=== PATIENT | male | born 1980 | race Caucasian/White ===

== ENCOUNTER 2016-03-17 06:55 | Emergency (ER) | payer SELFPAY ==
[~2016-03-17] VITALS: Ht 185.4 cm; Wt 83.0 kg
[~2016-03-17 06:55] MED LIST: METH5SOL3 PO; XANA0.5T PO; XANA1TAB6 PO
[2016-03-17 07:00] VITALS: BP 144/101; PULSE 91; RESP 16; TEMP 97.4; O2SAT 100
[2016-03-17] MEDS ORDERED: METH40TA PO (07:26)
[2016-03-17] MEDS ORDERED: ALPR2TAB3 PO (07:26)
[2016-03-17] MEDS ORDERED: ADDE30TA PO (07:26)
[2016-03-17] MEDS ORDERED: XANA2TAB2 PO (07:44)
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
[2016-03-17] MEDS ORDERED: ALPRAZolam 1 MG TAB PO ONE (07:45)
== END 2016-03-17 08:10 | disposition home or self-care (01) ==
LOC: PHED 06:55
DX: F13.20 Sedative, hypnotic or anxiolytic dependence, uncomplicated (principal); G47.30 Sleep apnea, unspecified; F17.210 Nicotine dependence, cigarettes, uncomplicated
CPT/HCPCS: 99281

== ENCOUNTER 2016-04-18 11:10 | Emergency (ER) | payer SELFPAY ==
[~2016-04-18] VITALS: Ht 185.4 cm; Wt 80.0 kg
[~2016-04-18 11:10] MED LIST changes: +ADDE30TA PO; +ALPR2TAB3 PO; +METH40TA PO; -METH5SOL3 PO; -XANA0.5T PO; -XANA1TAB6 PO; +XANA2TAB2 PO
[2016-04-18 11:12] VITALS: BP 142/92; PULSE 106; RESP 14; TEMP 97.7; O2SAT 98
[2016-04-18] MEDS ORDERED: DIAZ2 PO (11:33)
[2016-04-18] MEDS ORDERED: ALPRAZolam 0.5 MG TAB PO ONE (12:15)
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
[2016-04-18 12:38] VITALS: PULSE 91
== END 2016-04-18 12:52 | disposition home or self-care (01) ==
LOC: NEPB 11:10
DX: F13.20 Sedative, hypnotic or anxiolytic dependence, uncomplicated (principal); F17.210 Nicotine dependence, cigarettes, uncomplicated; F11.90 Opioid use, unspecified, uncomplicated
CPT/HCPCS: 99283

== ENCOUNTER 2016-05-30 09:12 | Emergency (ER) | payer SELFPAY ==
[~2016-05-30] VITALS: Ht 185.4 cm; Wt 77.2 kg
[~2016-05-30 09:12] MED LIST changes: -ALPR2TAB3 PO; +DIAZ2 PO
[2016-05-30 09:13] VITALS: BP 133/92; PULSE 99; RESP 17; TEMP 98.2; O2SAT 99
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
[2016-05-30 10:09] LABS: AUTOMATED NEUTROPHIL # 5.7 TH/MM3 (1.8-7.7); BASOPHIL % 0.3 % (0.0-2.0); EOSINOPHIL # 0.3 TH/MM3 (0-0.4); EOSINOPHIL % 3.4 % (0.0-4.0); HEMATOCRIT 41.5 % (39.0-51.0); HEMO FLAGS DIFF FINAL; LYMPH % 17.8 % (9.0-44.0); LYMPHOCYTE # 1.4 TH/MM3 (1.0-4.8); MEAN CELL VOLUME 85.9 FL (80.0-100.0); MEAN CORPUSCULAR HGB CONC 33.8 % (32.0-36.0); MONO % 5.3 % (0.0-8.0); NEUT % 73.2 % (16.0-70.0); PLATELET COUNT 301 TH/MM3 (150-450); RED BLOOD COUNT 4.83 MIL/MM3 (4.50-5.90); RED CELL DISTRIBUTION WIDTH 13.8 % (11.6-17.2); WHITE BLOOD COUNT 7.8 TH/MM3 (4.0-11.0)
[2016-05-30 10:14] LABS: AMPHETAMINE, URINE NEG (NEG); BARBITURATES, URINE NEG (NEG); COCAINE, URINE NEG (NEG)
[2016-05-30 10:25] LABS: ANION GAP 5 MEQ/L (5-15); AST (GOT) 30 U/L (15-37); BICARBONATE 29.9 MEQ/L (21.0-32.0); BLOOD UREA NITROGEN 7 MG/DL (7-18); CHLORIDE 106 MEQ/L (98-107); GLOMERULAR FILTRATION RATE 132 ML/MIN (>89); POTASSIUM 4.4 MEQ/L (3.5-5.1); SODIUM (NA) 141 MEQ/L (136-145)
[2016-05-30 10:28] LABS: ALKALINE PHOSPHATASE 66 U/L (45-117); ALT (GPT) 36 U/L (12-78); TOTAL BILIRUBIN ADULT 0.3 MG/DL (0.2-1.0)
[2016-05-30] MEDS ORDERED: METH40TA PO (15:09)
--- NOTE | 2016-05-31 19:07 | EKG ---
Date Performed: 05/30/2016 Time Performed: 09:32:50 PTAGE: 35 years EKG: Sinus rhythm QT is shorter from the prior tracing NORMAL ECG PREVIOUS TRACING : 09/08/2014 20.46 DOCTOR: Robson Whittaker Interpretating Date/Time 05/31/2016 19:06:14
== END 2016-05-30 17:57 | disposition home or self-care (01) ==
LOC: NEPE 09:12 → NEPJ 17:57
DX: F41.9 Anxiety disorder, unspecified (principal); Z53.21 Procedure and treatment not carried out due to patient leaving prior to being seen by health care provider; F17.210 Nicotine dependence, cigarettes, uncomplicated
CPT/HCPCS: 80053; 80307; 85025; 93005

== ENCOUNTER 2017-05-08 09:57 | Emergency (ER) | payer SELFPAY ==
[~2017-05-08] VITALS: Ht 185.4 cm; Wt 80.0 kg
[~2017-05-08 09:57] MED LIST changes: -ADDE30TA PO; -DIAZ2 PO; -XANA2TAB2 PO
[2017-05-08 10:03] VITALS: BP 124/77; PULSE 97; RESP 15; TEMP 98.3; O2SAT 99
[2017-05-08 10:43] VITALS: BP 118/76; PULSE 100; RESP 20; O2SAT 98
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
--- NOTE | 2017-05-08 12:02 | RADRPT ---
EXAM DATE/TIME: 05/08/2017 11:48 [facility] COMPARISON: No previous studies available for comparison. INDICATIONS : Foreign body. patient doesn't remember if he swallowed something. MEDICAL HISTORY : Hypertension. SURGICAL HISTORY : None. ENCOUNTER: Initial ACUITY: 1 day PAIN SCORE: 0/10 LOCATION: Abdomen FINDINGS: A single erect view of the abdomen demonstrates the lower lungs to be clear. No evidence of free int raperitoneal gas. The visualized bowel loops are unremarkable. No radiopaque foreign bodies. There i s stool throughout the colon. CONCLUSION: Unremarkable upright study. No radiopaque foreign bodies. Jose Dickinson MD on May 08, 2017 at 12:00 Board Certified Radiologist. This report was verified electronically.
== END 2017-05-08 13:08 | disposition left against medical advice (07) ==
LOC: NEPJ 09:57
DX: R41.0 Disorientation, unspecified (principal); F90.9 Attention-deficit hyperactivity disorder, unspecified type; F41.9 Anxiety disorder, unspecified; G47.30 Sleep apnea, unspecified; Z79.899 Other long term (current) drug therapy; Z88.5 Allergy status to narcotic agent; Z88.0 Allergy status to penicillin; Z72.0 Tobacco use
CPT/HCPCS: 74018; 99284